=== PATIENT | male | born 1980 | race Hispanic/Latino ===

== ENCOUNTER 2018-09-25 11:45 | Emergency (ER) | payer MEDICARE ==
[2018-09-25 11:49] VITALS: BP 103/74
[2018-09-25] MEDS ORDERED: NORCO 10/325 ONE (12:02)
[2018-09-25] MEDS ORDERED: NORCO 10/325 PO ONE (12:15)
[2018-09-25] MEDS ORDERED: IBUPROFEN PO ONE (13:27)
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
--- NOTE | 2018-09-25 14:46 | XRay Report ---
PROCEDURE: XR HAND 3+V LT TECHNIQUE: Left hand, 3 views HISTORY: pain after a fall COMPARISONS: None available FINDINGS: On the lateral view there is linear lucency at the dorsal base of the second middle phalanx. This cou ld be related to a vascular channel. If there is point tenderness, cannot exclude a nondisplaced frac ture. No joint dislocation. Otherwise, no focal osseous lesions. No radiopaque foreign body. IMPRESSION: On the lateral view there is linear lucency at the dorsal base of the second middle phalanx. This cou ld be related to a vascular channel. If there is point tenderness, cannot exclude a nondisplaced frac ture. . This document is electronically signed by Cecille Rosario MD., September 25 2018 02:45:01 PM ET
== END 2018-09-25 15:14 | disposition home or self-care (01) ==
LOC: ED 11:45
DX: S63.602A Unspecified sprain of left thumb, initial encounter (principal); M25.462 Effusion, left knee; J45.909 Unspecified asthma, uncomplicated; Z21 Asymptomatic human immunodeficiency virus [HIV] infection status; F17.200 Nicotine dependence, unspecified, uncomplicated; F12.10 Cannabis abuse, uncomplicated; Z88.0 Allergy status to penicillin; Z88.2 Allergy status to sulfonamides; Z91.018 Allergy to other foods; V29.3XXA Motorcycle rider (driver) (passenger) injured in unspecified nontraffic accident, initial encounter; Y93.89 Activity, other specified; Y92.488 Other paved roadways as the place of occurrence of the external cause; Y99.8 Other external cause status